=== PATIENT | female | born 1980 | race Caucasian/White ===

== ENCOUNTER 2016-06-08 12:41 | Inpatient (IN) | payer MEDICAID, OTHER ==
[2016-06-08] VITALS (73 sets, daily range): BP systolic 126–165; BP diastolic 72–115
[~2016-06-08] VITALS: Ht 167.6 cm; Wt 73.5 kg
[2016-06-08] MEDS ORDERED: MAGNESIUM SULFATE 50 ML IV ONE (12:47)
[2016-06-08] MEDS ORDERED: CELESTONE SOLUSPAN 6 MG/ML ONE (12:54)
[2016-06-08] MEDS ORDERED: AMPICILLIN SODIUM 2 GM in NS 100ML 100 ML IV ONE (13:30)
[2016-06-08] MEDS ORDERED: DIPRIVAN IV ONE (13:31)
[2016-06-08] MEDS ORDERED: PITOCIN ONE ×2 (13:31→16:57)
[2016-06-08] MEDS ORDERED: ROCEPHIN ONE (13:31)
[2016-06-08] MEDS ORDERED: ZOFRAN ONE (13:31)
[2016-06-08] MEDS ORDERED: SUBLIMAZE ONE (13:32)
[2016-06-08] MEDS ORDERED: KETALAR ONE (13:32)
[2016-06-08] MEDS ORDERED: XYLOCAINE ONE (13:32)
[2016-06-08] MEDS ORDERED: LACTATED RINGERS 2,000 ML ONE (13:33)
[2016-06-08] MEDS ORDERED: ATIVAN IV STA (13:54)
[2016-06-08] MEDS ORDERED: CELESTONE SOLUSPAN 6 MG/ML IM STA (13:54)
[2016-06-08] MEDS ORDERED: VERSED IV STA (13:54)
[2016-06-08] MEDS ORDERED: [UNRECOGNIZED DRUG - OTHER] IV STA (13:54)
[2016-06-08] MEDS ORDERED: LACTATED RINGERS IV SCH (14:00)
--- NOTE | 2016-06-08 14:00 | DIREP ---
PROCEDURE:OBSTETRICAL ULTRASOUND, 2nd AND 3rd TRIMESTER TECHNIQUE:Transabdominal ultrasound of the pelvic contents was performed. COMPARISON:None. INDICATIONS:SEIZURES, NO CARE TECHNIQUE: Transabdominal sonography of the gravid uterus was performed FINDINGS: NUMBER:Beltran. POSITION:Cephalic AMNIOTIC FLUID VOLUME:YUKO - 15 cm PLACENTA:Posterior, with no evidence of placenta previa. CERVIX:3.4 cm length. The cervix appears closed. HEART RATE:146 bpm BIPARIETAL DIAMETER:8.4 cm (34 W 1 D) HEAD CIRCUMFERENCE:30.7 cm (33 W 5 D) ABD CIRCUMFERENCE:28.9 cm (33 W 0 D) FEMUR LENGTH:6.4 cm (32 W 6 D) ESTIMATED WEIGHT:2133.9 gm (4 lb, 11oz) ULTRASOUND GA:33 W 2 D ULTRASOUND ALEC:July 25, 2016 Survey anatomic evaluation was not performed. CONCLUSION:Single live intrauterine gestation as detailed above. [facility] /. Dictated by: Alejandro Sahni M.D. on 06/08/2016 at 01:56 PM
--- NOTE | 2016-06-08 14:21 | PCM.HP ---
OB - Chief Complaint & HPI Date of Admission: Date of Admission: Jun 08, 2016 at 12:41 Diagnosis Carmelina Monsivais is a 35 yo WF patient NO CARE WHATSOEVER, for whom I am trying to put the puzzle pieces together, who was brought in by EMS where she was found seizing in a home [facility]. Carmelina's FOB of her first child, for whom she is still close, called EMS. 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 Her urine is positive for amphetamines today here in the hospital. The EMS crew gave the patient 2.5mg's Versed IVP X 1 while in the truck. We have given the patient 2mg's Ativan IV plus 2mg's Versed IV here at our facility. WE DID OBSERVE AN ECLAMPTIC SEIZURE WHILE SHE WAS HERE AT OUR HOSPITAL, AND SO THAT IS WHY WE GAVE THE ATIVAN. I appreciate the assistance of all of the hospital personnel (RNs, nurse managers, CRNAs) in helping to secure IV access and give drugs. IV Magnesium Sulfate 6gram load was begun, and then a 2gram/hour Magnesium Sulfate maintenance was instituted. Pt received IM Celestone 12mg's and 2grams of Ampicillin IV X 1. The patient's mother said that Carmelina is allergic to PCN, but the patient has exhibited no signs of anaphylaxis. Mira with U/S performed a bedside scan and a gestational age of 33 4/7 weeks was arrived at, no previa, vertex presentation. Dr Rob Chaney, attending airplane dispatcher, has agreed to accept this baby to [facility], and a transfer crew is on its way. I will perform a primary C/S this afternoon. BPs 140s-150s/90s-100s here at bedside. I will try and locate the FOB/FOB of her first baby, and try to gather more information. Chief Complaint/History : 2 Para: 1 EDC: Jul 23, 2016 EGA: 33 4/7 Reason for admission: other (SEIZURE ACTIVITY) Admission Nurse Assessment Rev: Yes OB - History Hx of Present Care: None Other Concerns: PT HAS A H/O HEROIN AND CRYSTAL METH ABUSE, PER HER MOTHER'S REPORT. Past Family/Social History * Past Medical, Surgical, Family and Obstetric Histories reviewed from chart. OB - Admission Exam Physical Exam HEENT: NCAT Lungs: Clear Abdomen: Gravid Extremities: Edema (2+ - 3+) Reflexes: Normal Heart Rate: 140's Decelerations: No Decelerations Fci Variability: Minimal (3-5) Contractions on Admission: None Presentation: vtx OB - Assessment/Plan Assessment Assessment: other (33 4/7 WEEKS' GESTATION, NO CARE, CRYSTAL METH ABUSE, ECLAMPTIC SEIZURE) Plan Plan: Section Other Plan Pt to go to ICU after PACU for more in-depth monitoring. Magnesium Sulfate to resume after delivery of the baby, and will likely continue for 24 hours post- delivery. SURJIT ABURTO MD Jun 08, 2016 14:16
[2016-06-08 15:00] LABS: HEMATOCRIT 39.5 % (36.0-46.0); HEMOGLOBIN 12.3 g/dL (12.0-15.0); MEAN CELL HGB 27.7 pg (26-34); MEAN CELL HGB CONCENTRATION 31.1 g/dL (33-37); RED BLOOD CELL 4.44 10^6/uL (4.00-5.20); WHITE BLOOD CELL 21.1 10^3/uL (4.5-11.0)
[2016-06-08] MEDS ORDERED: LACTATED RINGERS 1,000 ML IV SCH ×2 (15:00→16:30)
[2016-06-08] MEDS ORDERED: MAGNESIUM SULFATE IV ONE (15:00)
[2016-06-08 15:01] LABS: BASOPHIL % 0.3 % (0.0-0.2); EOSINOPHIL % 0.3 % (0.0-5.0); LYMPHOCYTES # 3.7 10^3/uL (1.0-4.8); LYMPHOCYTES % 17.4 % (24.0-44.0); MEAN PLATELET VOLUME 12.7 fL (7.8-11.0); MONOCYTES # 1.4 10^3/uL (0.3-0.8); MONOCYTES % 6.7 % (5.0-12.0); NEUTROPHIL # 15.5 10^3/uL (1.8-7.7); NEUTROPHILS % 73.1 % (41.0-85.0); PLATELET COUNT 212 10^3/uL (150-400)
[2016-06-08 15:02] LABS: BASOPHIL # 0.1 10^3/uL (0.0-0.1); EOSINOPHIL # 0.1 10^3/uL (0.0-0.2)
[2016-06-08] MEDS ORDERED: VERSED ONE ×2 (15:04→16:00)
[2016-06-08] MEDS ORDERED: LR/PITOCIN 500 ML IV SCH (16:00)
[2016-06-08] MEDS ORDERED: PITOCIN 0.02 UNIT in LACTATED RINGERS 1 ML IV SCH (16:18)
[2016-06-08] MEDS ORDERED: NORCO 7.5MG PO PRN (16:30)
[2016-06-08] MEDS ORDERED: MOTRIN PO PRN (16:30)
[2016-06-08] MEDS ORDERED: [UNRECOGNIZED DRUG - OTHER] IV SCH (16:30)
[2016-06-08] MEDS ORDERED: GAVISCON ES TABLET CHEW PO PRN (16:30)
[2016-06-08] MEDS ORDERED: BENADRYL PO PRN (16:30)
[2016-06-08] MEDS ORDERED: DEMEROL IV PRN (16:30)
[2016-06-08] MEDS ORDERED: ZOFRAN ODT SL PRN (16:30)
[2016-06-08] MEDS ORDERED: PHENERGAN IV PRN (16:30)
[2016-06-08] MEDS ORDERED: ZOFRAN IV PRN (16:30)
[2016-06-08] MEDS ORDERED: DILAUDID IV PRN (16:30)
[2016-06-08] MEDS ORDERED: AMBIEN PO PRN (16:30)
[2016-06-08] MEDS ORDERED: MILK OF MAGNESIA PO PRN (16:30)
--- NOTE | 2016-06-08 16:33 | PRM.OPH ---
Immediate Post Op Note Summary of Operation Date: Jun 08, 2016 Time: 16:28 Pre-Operative DX: IUP @ 33 4/7 WKS; NO PNC; ECLAMPTIC SEIZURE; CRYSTAL METH ABUSE Post-OP DX: SAME Anesth.Used: GETA Indications: PRIMARY LOW TRANSVERSE SECTION VIA PFANNENSTIEL Physician's Summary: Liveborn male infant delivered in caul with placental tissue intact as well. Baby boy born at 1540, Apgars of 6 and 8, weight 2147grams (= 4# 11oz). Lightly meconium-stained fluid/membranes. Normal-appearing uterus, normal- appearing tubes bilaterally, ovaries bilaterally. Assistants: Listed Assisting Physicians TIERNEY URIBE RAILROAD OPERATOR; ANNA VALDEZ CST Anesthesiologist/FARM MACHINERY MECHANIC SUZY TRENT FARM MACHINERY MECHANIC; MARILIN MARTINS FARM MACHINERY MECHANIC Specimen(s) Removed: List Specimen: PLACENTA TO PATHOLOGY Estimated Blood Loss: EBL/ESTIMATED BLOOD LOSS: (MIL: 500 Complications: Complications: NONE Assessment & Plan: Update Surgical HX/Problems: (1) Status post primary low transverse section (2) 33 weeks gestation of (3) Eclamptic seizure (4) No care in current (5) Methamphetamine abuse Assessment & Plan: Pt to recover in ICU, and to spend overnight there, while on 2grams/hour IV Magnesium Sulfate. SURJIT ABURTO MD Jun 08, 2016 16:33
[2016-06-08] MEDS ORDERED: APRESOLINE ONE ×2 (16:36→16:38)
[2016-06-08] MEDS ORDERED: ROBINUL ONE (16:56)
[2016-06-08] MEDS ORDERED: ZEMURON IV ONE (16:57)
[2016-06-08] MEDS ORDERED: NEOSTIGMINE ONE (16:57)
--- NOTE | 2016-06-08 17:30 | NUR ---
REC'D FROM PACU 35 YEAR OLD FEMALE AROUSES TO VOICE KNOWS NAME AND PLACE , ON CYTOLOGY LABORATORY MANAGER SHOWS NSR 88 WITHOUT ECTOPY,OXYGEN 2 LITERS/NASAL CANNULA ,NO SEIZURE ACTIVITY AT THIS TIME, SEIZURE PRECAUTIONS IN PLACE,HAS MAGNESIUM INFUSING AT 50 ML/HR=2 GMS/HR ORDERED, HAS PITOCIN INFUSING AT 75 ML/HR FROM PACU ORDERED, ALL ALARMS ON ,ABD INCISION COVERED/DRY/INTACT ,PROVINA IN PLACE,FUNDUS U-2 ABD SOFT,LOCHIA RUBRA MODERATE AMT NOTED,ABD BINDER IN PLACE, BREAST ARE WRAPPED,CONT TO MONITOR ,WILL MAINTAIN SAFETY AND COMFORT AT ALL TIMES
--- NOTE | 2016-06-08 17:30 | NUR ---
rec'd report from namita lopez health and social care teacher , and heena rn, assume care, sales and marketing intern done,
--- NOTE | 2016-06-08 17:30 | NUR ---
CLEAR LIQUIDS SERVED,ABD BINDER PLACED, FUNDUS CHECK SEE FORM
--- NOTE | 2016-06-08 17:45 | NUR ---
placed on comfort flow 2lpm @ 40% Addendum: 06/08/16 at 1746 by Amanda Merino RRT RT Amended: Links added.
[2016-06-08 18:10] LABS: UR AMPHETAMINE QUAL POSITIVE (NEGATIVE); UR BARBITURATE QUAL NEGATIVE (NEGATIVE); UR BENZODIAZEPINE QUAL NEGATIVE (NEGATIVE); UR COCAINE QUAL NEGATIVE (NEGATIVE); UR OPIATE QUALITIVE NEGATIVE (NEGATIVE); UR TETRAHYDROCANNABINOL (THC) NEGATIVE (NEGATIVE)
[2016-06-08 18:11] LABS: APPEARANCE,URINE CLOUDY (CLEAR); BILIRUBIN,URINE NEGATIVE (NEGATIVE); PH,URINE 5 (5.0-6.0); UA COLOR YELLOW (YELLOW); UROBILINOGEN,URINE NEGATIVE (NEGATIVE); WBC,URINE 0-2 WBC/HPF (0-2)
[2016-06-08 18:12] LABS: AMORPHOUS SEDIMENT,UR LARGE (NONE SEEN)
--- NOTE | 2016-06-08 18:35 | NUR ---
reflexes normal with fundus inspection , report to hs nurse
--- NOTE | 2016-06-08 19:15 | NUR ---
ASSESSMENT Assessment performed. Fundus firm -1. Small amt vaginal bleeding noted. Herron draining to gravity. Provina wound vac on and intact. DTR normal. Negative clonus. Pt oriented to person and place. Unable to complete full sentence without falling asleep. Danelle care given. Pt requested jello. Jello given to patient.
[2016-06-08 20:08] LABS: BASOPHIL 2 % (0-2); DIFFERENTIAL COMMENT NORMAL; LYMPHOCYTE 14 % (25-36); MONOCYTE 3 % (3-9); SEGMENTED NEUTROPHILS 81 % (31-76); TOTAL CELLS COUNTED 100 #CELLS
--- NOTE | 2016-06-08 20:15 | NUR ---
DTR dtr normal. negative homans sign. b/p 135/87. Denies any headache at this time. Resp. 15 and unlabored. Fundus firm
[2016-06-08] MEDS ORDERED: DEMEROL ONE (20:50)
[2016-06-08] MEDS ORDERED: PHENERGAN ONE (21:06)
--- NOTE | 2016-06-08 21:15 | NUR ---
DTR dtr normal. negative homans sign. Scant amount of vaginal bleeding. Danelle care given. B/p 153/108 resp. 12.
[2016-06-08] MEDS ORDERED: TRANDATE PO SCH (21:30)
[2016-06-08] MEDS ORDERED: TRANDATE PO STA (21:38)
[2016-06-09] VITALS (85 sets, daily range): BP systolic 123–169; BP diastolic 72–111
--- NOTE | 2016-06-09 00:15 | NUR ---
RESTING resting in bed with call light in reach. No acute distress noted.
--- NOTE | 2016-06-09 01:58 | NUR ---
RESTING repositioned in bed in left lateral. Call light in reach. Opens eyes to voice but quickly goes back to sleep easily.
--- NOTE | 2016-06-09 03:00 | NUR ---
ALAN CARE ALAN CARE GIVEN. SMALL AMOUNT OF VAGINAL BLEEDING PRESENT. FUNDUS FIRM -2. PITOCIN COMPLETED. LR @125 ML/HR INFUSING. PT AWAKENS TO NAME BUT QUICKLY CLOSES EYES. GOOD URINE OUTPUT NOTED. 200 ML IN LAST HOUR. CALL LIGHT IN REACH. WILL CONT TO MONITOR FOR CHANGES.
--- NOTE | 2016-06-09 05:00 | NUR ---
LAB LAB HERE TO DRAW BLOOD
--- NOTE | 2016-06-09 05:17 | PRM.ACF1 ---
Admission Criteria Forms AMBULATORY SURGERY EXCEPTION CRITERIA Ambulatory Surgery Exception Criteria ( Place 'X' for any and all applicable criteria): Surgery or procedure performed on ambulatory basis may require inpatient stay for[A] ANY ONE of the following(1)(2)(3)(4)(5)(6)(7)(8)(9): [X] I. A preoperative situation, condition, or finding that warrants inpatient stay as indicated by ANY ONE of the following: [] a) Inpatient care needed because of severity of a disease or condition rather than the surgery (eg, severe cardiac or respiratory disease, severe infection) (15) (16 ) (17) (18) [] b) Emergent procedure (eg, angioplasty for acute ischemia)(19) [] c) Complex surgical approach or situation as indicated by ANY ONE of the following(3): [] i) Open approach needed instead of usual endoscopic, transcatheter, or other less invasive procedure [] ii) Difficult approach because of previous operation [] iii) Airway monitoring required after open neck procedures(20)(21 ) [] iv) Large mass requiring unusually extensive dissection [] v) Additional complicating feature requiring inpatient care (eg , drain management)(22(23): [X] d) Major surgery in a pt with high anesthetic risk as indicated by ANY ONE of the following (2)(3)(5)(7)(8): [X] i) ASA risk class III or higher (severe systemic disease impairing function) [D] [] ii) Advanced age (eg, older than 85 years)(14)(24) [] iii) Symptomatic heart failure(25) [] iv) Symptomatic asthma or COPD(8)(21) [] v) Morbid obesity with hemodynamic or respiratory problems(20)( 21)(26)(27) [] vi) Obstructive sleep apnea(20)(21) [] vii) Former premature infants who are younger than 60 weeks [] viii) High risk for severe postoperative abnormalities (eg, severe postoperative hypocalcemia after parathyroidectomy for severe hyperparathyroidism)(27)( 28) [] ix) Unstable angina(25) [] e) Drug-related risk requiring inpatient stay as indicated by ANY ONE of the following(5)(10)(14)(32)(33) [] i) Procedure requires discontinuing drugs or other therapy (eg , antiarrhythmic medication, antiseizure medication), which necessitates inpatient observation or treatment.(18)(31) [] ii) Major surgery and high risk drug use as indicated by ANY ONE of the following: [] 1) Active abuse of cocaine or similar drug [] 2) Monoamine oxidase inhibitor use [] 3) Other drug identified as posing risk [] f) Inadequate outpatient care situation as indicated by ANY ONE of the following(5)(10)(14)(32)(33) [] i) Patient lives remote from medical facility and procedure has urgent complication potential, and temporary nearby residence cannot be arranged [] ii) Patient will have postprocedure incapacitation and inadequate assistance at home, or alternative level of care cannot be arranged. [] iii) Patient will have long general anesthesia or procedure side effect resolution time, and competent person to stay with patient on first postoperative night at home or alternative level of care cannot be arranged. [] iv) Other inadequate outpatient situation that cannot be handled by other means [] II. A perioperative event, condition, or finding that warrants inpatient stay as indicated by ANY ONE of the following (1)(2)(3): [] a) Inadequate physiologic recovery: cardiovascular, respiratory, or hemodynamic status not normal or near preoperative baseline(18) [] b) Hemodynamic instability [] c) Patient not alert with near normal or baseline mental status [] d) Temperature not normal or as expected and not appropriate for outpatient treatment of condition [] e) Ambulatory or appropriate activity level status not yet achieved post procedure [E](34)(35)(36) [] f) Operative site not appropriate (eg, unexpected or excessive drainage or bleeding) [] g) Postoperative effects not resolved or adequately managed (eg, significant pain or vomiting not appropriate for outpatient or next level of care)(10)(12) [] h) Complicating features requiring inpatient care as indicated by ANY ONE of the following(37): [] i) Severe complications of procedure (eg, bowel injury, airway compromise, vascular injury,severe hemorrhage) [] ii) Extensive (eg, dissection far beyond usual scope of procedure ) or prolonged (eg, 120 minutes beyond usual) surgery needed requiring inpatient postoperative care [] iii) Conversion to an open or complex procedure that requires inpatient care (eg, open vs laparoscopic cholecystectomy, abdominal vs vaginal hysterectomy)(38) [] iv) Comorbid condition or test result identified during or post procedure that requires inpatient care (7) [] v) Malignant hyperthermia(30) [] vi) Other complicating feature requiring inpatient care(22)(23) Inpatient stay may be needed until ALL of the following are present (1)(2)(3)(4) (5)(6)(10)(14)(33)(40): []a) Physiologic recovery: cardiovascular, respiratory, and hemodynamic status normal or near preoperative baseline []b) Hemodynamic stability []c) Patient alert, with near normal or baseline mental status []d) Temperature appropriate: patient afebrile or temperature appropriate for outpt treatment of condition []e) Activity level appropriate: ambulatory or appropriate activity level post procedure []f) Operative site appropriate as indicated by ALL of the following: []i) Site dry or with expected drainage []ii) Any blood noted is as expected for procedure. []g) Postoperative effects resolved or managed as indicated by ALL of the following: []i) Pain management appropriate for outpatient (or next level of) care(10) []ii) Minimal nausea and vomiting: if present, successfully treated with oral medication(12) []iii) Headache, dizziness, or drowsiness (if present) are mild. []h) Voiding status acceptable as indicated by ANY ONE of the following: []i) Voiding spontaneously []ii) No voiding but instructions given for follow-up in 6 to 8 hours []iii) Urinary catheter in place, and instructions given for follow-up []i) Complicating features requiring inpatient care manageable at a lower level of care(37) []j) Comorbid conditions manageable at a lower level of care(37) The original payworks content created by [employer] has been revised. The portions of the content which have been revised are identified through the use of italic text or in bold, and [employer]works has neither reviewed nor approved the modified material. All other unmodified content is copyright payworks. Please see references footnoted in the original payworks edition 2016 Is [facility]/Mariah's added/comple: YES OLEG EWING [facility] Jun 09, 2016 05:17
--- NOTE | 2016-06-09 05:45 | NUR ---
ALAN CARE ALAN CARE DONE. APPIAH EMPTIED. RESTING WELL IN BED. CALL LIGHT IN REACH.
[2016-06-09 06:08] LABS: HEMATOCRIT 32.2 % (36.0-46.0); HEMOGLOBIN 10.9 g/dL (12.0-15.0); LYMPHOCYTES # 1.8 10^3/uL (1.0-4.8); LYMPHOCYTES % 8.2 % (24.0-44.0); MEAN CELL HGB 28.8 pg (26-34); MEAN CELL HGB CONCENTRATION 33.9 g/dL (33-37); MEAN CORP VOLUME 85.2 fL (78-100); MEAN PLATELET VOLUME 13.2 fL (7.8-11.0); MONOCYTES # 0.9 10^3/uL (0.3-0.8); NEUTROPHIL # 18.6 10^3/uL (1.8-7.7); NEUTROPHILS % 87.4 % (41.0-85.0); RED BLOOD CELL 3.78 10^6/uL (4.00-5.20); RED CELL DISTRIBUTION WIDTH 12.9 % (11.5-14.5); WHITE BLOOD CELL 21.3 10^3/uL (4.5-11.0)
[2016-06-09 06:30] LABS: INR 0.9; PROTHROMBIN PROTIME 9.4 SEC (9.8-11.9)
[2016-06-09 06:34] LABS: ALANINE AMINOTRANSFERASE 32 U/L (12-78); ALBUMIN 1.9 g/dL (3.4-5.0); ALKALINE PHOSPHATASE 178 U/L (50-136); ANION GAP 11.3; ASPARTATE AMINO TRANSFERASE 62 U/L (0-35); CREATININE SERUM 1.06 mg/dL (0.59-1.40); GLUCOSE 117 mg/dL (70-110); URIC ACID 5.8 mg/dL (2.6-6.0)
--- NOTE | 2016-06-09 06:45 | NUR ---
rec'd report from nurse,
--- NOTE | 2016-06-09 06:50 | NUR ---
REPORT report given to oncoming shift.
--- NOTE | 2016-06-09 07:00 | NUR ---
RECEIVED PATIENT RESTING WITH EYES CLOSED ON SEMI FOWLERS POSITION WITH FEET ELEVATED AT 15 DEGREES DIME SIZE BRUISE ON LEFT HAND MILD SWELLING NOTED. APPLIED WARM COMPRESS TO SITE WITH GOOD DEEP TENDON REFLEXES BREAST AND ABDOMINAL BINDER IN PLACE PROVINA WOUND VAC IN PLACE
--- NOTE | 2016-06-09 08:30 | NUR ---
RT HERE SOFIA ,I.S 1000ML ,WILL CONT TO ENCOURAGE USE, EXPLANATION GIVEN ,FULLY UNDERSTANDS PURPOSE
[2016-06-09] MEDS ORDERED: TRANDATE PO SCH (09:00)
[2016-06-09] MEDS: PRENATAL VITAMIN TABLET PO SCH (09:00)
--- NOTE | 2016-06-09 09:00 | NUR ---
refuses vitamin, trandate 100mg po not given sbp 130/88 hr 88 ,will cont to monitor maintain safety and comfort at all times
--- NOTE | 2016-06-09 09:25 | NUR ---
CALLED DR ABURTO CONCERNING LABS ORDERED FROM [facility],DR ABURTO STATES HE WILL DO THE EXAM AND COLLECT SAMPLES TO SEND TO LAB " Addendum: 06/09/16 at 0932 by ALLEN POPE RN RN REF:TEST REQUEST CHLAMYDIA GBS,ALYCEES
--- NOTE | 2016-06-09 09:32 | NUR ---
CALLED [facility] REQUESTED [phone],NO ANSWER ,LEFT NUMBER TO RETURN CALL
--- NOTE | 2016-06-09 10:29 | NUR ---
[facility] [place] [employer] HERE SPEAKING WITH PT, CPS CLASSROOM ASSISTANT III
[2016-06-09] MEDS ORDERED: LACTATED RINGERS 1,000 ML IV ONE (11:25)
[2016-06-09] MEDS ORDERED: MAGNESIUM SULFATE 1,000 ML IV SCH (11:30)
[2016-06-09] MEDS ORDERED: LACTATED RINGERS IV SCH (12:30)
[2016-06-09] MEDS ORDERED: LACTATED RINGERS 1,000 ML IV SCH (12:30)
--- NOTE | 2016-06-09 12:54 | PRM.PN ---
Subjective/Objective S/P: C/S (S/P Primary C/S for eclamptic seizure not in labor, no PNC, 33 4/7 weeks by bedside U/S) General: Other (She is having some abdominal pain when she deep breathes) Chest: Clear Heart: RRR Abdomen: Uterus Firm/Non-Tender incision: Other (Prevena wound vac still in place, and working well) Urine Output: Adequate Extremities: Other (2+ pitting edema continues; reflexes 2+/brisk) Vital Signs First Vital Signs Date Time Temp Pulse Resp B/P Pulse Ox O2 Delivery O2 Flow Rate FiO2 06/08/16 16:19 10 06/08/16 16:19 97.4 92 16 157/106 100 Venti Mask 06/09/16 09:58 21 Last Vital Signs Date Time Temp Pulse Resp B/P Pulse Ox O2 Delivery O2 Flow Rate FiO2 06/09/16 09:58 86 20 95 Room Air 21 06/09/16 09:15 137/85 06/09/16 08:03 2.00 06/09/16 06:30 98.1 Pulse in the low 90s, and last BP 151/87. Assessment/Plan Assessment/Plan Will D/C Magnesium Sulfate seizure prophylaxis tomorrow am, and transfer back to . Will D/C Herron in am too. Will order am labs. Her creatinine is over 1.0. Problems: (1) Status post primary low transverse section Status: Acute ICD Code: Z98.891 SNOMED: 61286532 (2) 33 weeks gestation of Status: Acute ICD Code: Z3A.33 SNOMED: 49829495 (3) Eclamptic seizure Status: Acute ICD Code: O15.9 SNOMED: 65927156 (4) No care in current Status: Acute ICD Code: O09.30 SNOMED: 4660122139522 (5) Methamphetamine abuse Status: Acute ICD Code: F15.10 SNOMED: 126375417 SURJIT ABURTO MD Jun 09, 2016 12:54
[2016-06-09] MEDS ORDERED: LEVAQUIN IV ONE (15:00)
[2016-06-09] MEDS ORDERED: ROCEPHIN 1,000 MG in NS 100ML 100 ML IV ONE (15:00)
--- NOTE | 2016-06-09 15:20 | NUR ---
DISCHARGE PLANNING: SS VISITED WITH PT CONCERNING DISCHARGE PLANNING NEEDS. PT IS INDEPENDENT AND LIVES HOME WITH HER IN [place]. PT STATED SHE WAS HERE VISITING WHEN SHE WAS RUSHED TO THE HOSPITAL. PT STATED SHE IS GETTING DRUG REHABILITATION ASSISTANCE IN [place], AND WILL FOLLOW UP WITH THEM UPON DISCHARGE. PT DOES NOT THINK SHE NEEDS INPATIENT REHABILITATIONS FOR DRUGS AT THIS TIME. PT'S GOAL IS TO RETURN HOME WITH HER . PT DENIES NEEDING ADDITIONAL RESOURCES AT THIS TIME. NO FURTHER NEEDS NOTED OR IDENTIFIED AT THIS TIME. CPS REPORT WAS MADE, AND CPS IS ACTIVELY INVOLVED IN PT'S CASE AND HAS VISITED WITH HER AND HER FAMILY NUMEROUS TIMES THROUGHOUT THE DAY. SS TO CONTINUE TO FOLLOW AND MONITOR DISCHARGE PLANNING/SS NEEDS.
--- NOTE | 2016-06-09 17:15 | NUR ---
UP IN CHAIR WITH ONE ASSIT, WEAK YET STEADY GAIT, N/C VOICED AT THIS TIME , SAFETY AND COMFORT MAINTAINED AT ALL TIMES
--- NOTE | 2016-06-09 18:55 | NUR ---
report given to PADMAJA ASIF
--- NOTE | 2016-06-09 19:00 | NUR ---
SBAR REPORT RECEIVED FROM AM SHIFT. INTRODUCED SELF, ASSUMED CARE. PROVIDED PATIENT WITH JELLO. PATIENT WISHES TO GET BACK IN BED AFTER EATING.
--- NOTE | 2016-06-09 19:05 | NUR ---
ASSISTED PATIENT BACK TO BED. DENIES FURTHER NEEDS AT THIS TIME.
--- NOTE | 2016-06-09 19:08 | NUR ---
NICU NURSE FROM [facility] CALLED TO SPEAK WITH PATIENT TO UPDATE HER ON THE STATUS OF HER BABY.
--- NOTE | 2016-06-09 19:30 | NUR ---
PATIENTS MOTHER CALLED TO TALK TO PATIENT. PROVIDED WITH CORDLESS TELEPHONE. DENIES NEEDS.
--- NOTE | 2016-06-09 21:00 | NUR ---
PROVIDED PATIENT WITH JELLO AND 8 OZ OF JUICE.
[2016-06-10] VITALS (32 sets, daily range): BP systolic 138–191; BP diastolic 73–108
--- NOTE | 2016-06-10 | NUR ---
PROVIDED PATIENT WITH JUICE AND IQRA
--- NOTE | 2016-06-10 03:05 | NUR ---
PROVIDED PATIENT WITH JELLO AND JUICE. DENIES PAIN OR FURTHER NEEDS.
--- NOTE | 2016-06-10 05:11 | NUR ---
LAB AT BEDSIDE FOR AM DRAW. DENIES FURTHER NEEDS AT THIS TIME.
[2016-06-10 05:35] LABS: BASOPHIL % 0.1 % (0.0-0.2); HEMATOCRIT 25.6 % (36.0-46.0); HEMOGLOBIN 8.3 g/dL (12.0-15.0); LYMPHOCYTES # 2.5 10^3/uL (1.0-4.8); LYMPHOCYTES % 12.4 % (24.0-44.0); MEAN CELL HGB CONCENTRATION 32.4 g/dL (33-37); MEAN CORP VOLUME 86.5 fL (78-100); MONOCYTES # 1.5 10^3/uL (0.3-0.8); MONOCYTES % 7.6 % (5.0-12.0); NEUTROPHIL # 16.1 10^3/uL (1.8-7.7); NEUTROPHILS % 79.9 % (41.0-85.0); PLATELET COUNT 196 10^3/uL (150-400); RED BLOOD CELL 2.96 10^6/uL (4.00-5.20); RED CELL DISTRIBUTION WIDTH 13.4 % (11.5-14.5); WHITE BLOOD CELL 20.1 10^3/uL (4.5-11.0)
[2016-06-10 05:57] LABS: ALANINE AMINOTRANSFERASE 27 U/L (12-78); ALBUMIN 1.7 g/dL (3.4-5.0); ALKALINE PHOSPHATASE 131 U/L (50-136); ANION GAP 10.4; ASPARTATE AMINO TRANSFERASE 34 U/L (0-35); CALCIUM 6.1 mg/dL (8.4-10.5); CREATININE SERUM 0.93 mg/dL (0.59-1.40); GLUCOSE 91 mg/dL (70-110); URIC ACID 4.9 mg/dL (2.6-6.0)
--- NOTE | 2016-06-10 06:45 | NUR ---
Report received from LAYA Frias and [facility].
--- NOTE | 2016-06-10 06:45 | NUR ---
SBAR REPORT GIVEN TO ONCOMING SHIFT. RELINQUISHED CARE.
--- NOTE | 2016-06-10 07:00 | NUR ---
Called OB to let them know that I am bringing the patient to room 324.
--- NOTE | 2016-06-10 07:05 | NUR ---
Notified patient's mother and that patient will go to OB room 324.
--- NOTE | 2016-06-10 07:10 | NUR ---
Germaine GAMBOA and IV on SL.
--- NOTE | 2016-06-10 07:15 | NUR ---
Assisted patient putting on new disposable underwear and feminine napkin.
--- NOTE | 2016-06-10 07:20 | NUR ---
Pt. transported out of the unit by wheelchair on room air with IV G 18 at L AC and IV G 18 at R wrist on SL. Report given to LAYA Galindo and inform her that garcia was removed at 0710 and patient is due to void. Relinquished care.
[2016-06-10 08:17] LABS: ANISOCYTOSIS 1+ (NEGATIVE); LYMPHOCYTE 9 % (25-36); MONOCYTE 4 % (3-9); POIKILOCYTOSIS 1+ (NEGATIVE); SEGMENTED NEUTROPHILS 87 % (31-76); TOTAL CELLS COUNTED 100 #CELLS
[2016-06-10] MEDS: PRENATAL VITAMIN TABLET PO SCH (09:00)
[2016-06-10] MEDS ORDERED: NORCO 7.5MG PO ONE ×3 (13:44→22:31)
[2016-06-10] MEDS: NORCO 7.5MG PO PRN ×2 (13:48→17:50)
[2016-06-10] MEDS ORDERED: AMBIEN ONE (22:26)
[2016-06-10] MEDS ORDERED: MOTRIN ONE (22:31)
[2016-06-11 08:17] LABS: BASOPHIL % 0.1 % (0.0-0.2); EOSINOPHIL # 0.1 10^3/uL (0.0-0.2); EOSINOPHIL % 0.5 % (0.0-5.0); HEMATOCRIT 25.5 % (36.0-46.0); HEMOGLOBIN 7.9 g/dL (12.0-15.0); LYMPHOCYTES # 2.2 10^3/uL (1.0-4.8); LYMPHOCYTES % 15.1 % (24.0-44.0); MEAN CELL HGB 28.1 pg (26-34); MEAN CORP VOLUME 90.7 fL (78-100); MEAN PLATELET VOLUME 11.1 fL (7.8-11.0); MONOCYTES % 6.9 % (5.0-12.0); NEUTROPHIL # 11.3 10^3/uL (1.8-7.7); NEUTROPHILS % 76.7 % (41.0-85.0); RED BLOOD CELL 2.81 10^6/uL (4.00-5.20); RED CELL DISTRIBUTION WIDTH 13.8 % (11.5-14.5); WHITE BLOOD CELL 14.8 10^3/uL (4.5-11.0)
[2016-06-11] MEDS ORDERED: PRENATAL VITAMIN TABLET PO SCH (09:00)
--- NOTE | 2016-06-11 10:11 | PRM.PN ---
Subjective/Objective S/P: C/S (POD #3 s/p Primary C/S) General: No Complaints Chest: Clear Heart: RRR Abdomen: Uterus Firm/Non-Tender incision: Other (Prevena wound vac still in place and working well) Urine Output: Adequate Extremities: Other (2+ pitting edema bilaterally) Vital Signs First Vital Signs Date Time Temp Pulse Resp B/P Pulse Ox O2 Delivery O2 Flow Rate FiO2 06/08/16 16:19 10 06/08/16 16:19 97.4 92 16 157/106 100 Venti Mask 06/09/16 09:58 21 Last Vital Signs Date Time Temp Pulse Resp B/P Pulse Ox O2 Delivery O2 Flow Rate FiO2 06/10/16 09:09 88 18 93 Room Air 21 06/10/16 07:30 147/81 06/10/16 07:15 98.5 06/10/16 07:10 2.00 BP 130s/80s currently (135/85). Laboratory Tests Test 06/10/16 05:26 06/11/16 08:10 White Blood Count 20.110^3/uL 14.810^3/uL Red Blood Count 2.9610^6/uL 2.8110^6/uL Hemoglobin 8.3g/dL 7.9g/dL Hematocrit 25.6% 25.5% Mean Corpuscular Volume 86.5fL 90.7fL Mean Corpuscular Hemoglobin 28.0pg 28.1pg Mean Corpuscular Hemoglobin Concent 32.4g/dL 31.0g/dL Red Cell Distribution Width 13.4% 13.8% Platelet Count 44437^3/uL 70597^3/uL Mean Platelet Volume 12.0fL 11.1fL Neutrophils (%) (Auto) 79.9% 76.7% Lymphocytes (%) (Auto) 12.4% 15.1% Monocytes (%) (Auto) 7.6% 6.9% Neutrophils # (Auto) 16.110^3/uL 11.310^3/uL Lymphocytes # (Auto) 2.510^3/uL 2.210^3/uL Monocytes # (Auto) 1.510^3/uL 1.010^3/uL Differential Total Cells Counted 100#CELLS Eosinophils % 0.0% 0.5% Basophils % 0.1% 0.1% Segmented Neutrophils 87% Lymphocytes 9% Monocytes 4% Basophils # 0.010^3/uL 0.010^3/uL Platelet Estimate Adequate Platelet Morphology Normal Poikilocytosis 1+ Anisocytosis 1+ Eosinophil Count 0.010^3/uL 0.110^3/uL Sodium Level 137mmol/L Potassium Level 4.4mmol/L Chloride Level 105.0mmol/L Carbon Dioxide Level 26.0mmol/L Anion Gap 10.4 Blood Urea Nitrogen 7mg/dL Creatinine 0.93mg/dL Estimat Glomerular Filtration Rate >60 BUN/Creatinine Ratio 7.0 Glucose Level 91mg/dL Calculated Osmolality 281.5 Uric Acid 4.9mg/dL Calcium Level 6.1mg/dL Total Bilirubin 0.1mg/dL Aspartate Amino Transf (AST/SGOT) 34U/L Alanine Aminotransferase (ALT/SGPT) 27U/L Alkaline Phosphatase 131U/L Lactate Dehydrogenase 423U/L Total Protein 4.9g/dL Albumin 1.7g/dL Globulin 3.2 Absolute Immature Granulocyte (auto 0.1110^3 u/L Percent Immature Gran (Cell Imm) 0.70% Assessment/Plan Assessment/Plan POSSIBLE DISCHARGE TO HOME TODAY. I will review all of her labs today. Problems: (1) Status post primary low transverse section Status: Acute ICD Code: Z98.891 SNOMED: 56396039 (2) 33 weeks gestation of Status: Acute ICD Code: Z3A.33 SNOMED: 89670977 (3) Eclamptic seizure Status: Acute ICD Code: O15.9 SNOMED: 23603097 (4) No care in current Status: Acute ICD Code: O09.30 SNOMED: 6116047676330 (5) Methamphetamine abuse Status: Acute ICD Code: F15.10 SNOMED: 109433756 SURJIT ABURTO MD Jun 11, 2016 10:10
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
[2016-06-11 10:29] LABS: ALANINE AMINOTRANSFERASE 30 U/L (12-78); ALBUMIN 1.7 g/dL (3.4-5.0); ALKALINE PHOSPHATASE 124 U/L (50-136); ANION GAP 10.9; ASPARTATE AMINO TRANSFERASE 41 U/L (0-35); CALCIUM 6.6 mg/dL (8.4-10.5); CARBON DIOXIDE 26.1 mmol/L (20.0-32); GLUCOSE 91 mg/dL (70-110); URIC ACID 3.6 mg/dL (2.6-6.0)
[2016-06-11] MEDS ORDERED: BENADRYL PO PRN (10:30)
[2016-06-11] MEDS ORDERED: DEMEROL IV PRN (10:30)
[2016-06-11] MEDS ORDERED: PHENERGAN IV PRN (10:30)
[2016-06-11] MEDS ORDERED: DILAUDID IV PRN (10:30)
[2016-06-11] MEDS ORDERED: ZOFRAN IV PRN (10:30)
[2016-06-11] MEDS ORDERED: MILK OF MAGNESIA PO PRN (10:30)
[2016-06-11] MEDS ORDERED: NORCO 7.5MG PO ONE (10:44)
[2016-06-11 10:55] LABS: INR 0.9; PARTIAL THROMBOPLASTIN TIME 19.1 SEC (24.67-30.72); PROTHROMBIN PROTIME 9.3 SEC (9.8-11.9)
[2016-06-11] MEDS ORDERED: HYDR-925 PO (11:59)
--- NOTE | 2016-06-11 12:07 | PRM.DC ---
OB Discharge Summary Discharge Summary Discharge Diagnosis: S/P Vitals First Vital Signs Date Time Temp Pulse Resp B/P Pulse Ox O2 Delivery O2 Flow Rate FiO2 06/08/16 16:19 10 06/08/16 16:19 97.4 92 16 157/106 100 Venti Mask 06/09/16 09:58 21 Last Vital Signs Date Time Temp Pulse Resp B/P Pulse Ox O2 Delivery O2 Flow Rate FiO2 06/10/16 09:09 88 18 93 Room Air 21 06/10/16 07:30 147/81 06/10/16 07:15 98.5 06/10/16 07:10 2.00 Complications: PIH (Pt had an eclamptic seizure--and was given IV Magnesium Sulfate seizure prophylaxis. Pt was not put on an antihypertensive during her course.) Medications: Other (Rx for [place] 7.5/325 #60 no refills--written on triplicate prescription pad) Discharge Disposition: Stable Discharge Instructions: Pelvic Rest x 6 Weeks, Clinic F/U 1-2 Weeks, Regular Diet, Regular Activity, Meds as Prescribed, Call MD for Problems Additional Comments Pt told by me at nurse's station, that if she has any signs/symptoms of pre- eclampsia (HAs, scotomata), then she is go to the ER in [facility] [place]. She is going to go home with FOB of her first baby, who is named Shivam. SURJIT ABURTO MD Jun 11, 2016 12:07
[2016-06-11] MEDS ORDERED: NORCO 7.5MG PO PRN ×2 (12:30)
[2016-06-11 14:23] LABS: AMPHETAMINES Positive (.)
[2016-06-11] MEDS ORDERED: MOTRIN PO PRN (16:30)
[2016-06-11] MEDS ORDERED: GAVISCON ES TABLET CHEW PO PRN (16:30)
[2016-06-11] MEDS ORDERED: ZOFRAN ODT SL PRN (16:30)
[2016-06-11] MEDS ORDERED: AMBIEN PO PRN (21:00)
== END 2016-06-11 12:11 | disposition home or self-care (01) | DRG 540 ==
LOC: ATP 12:41 → OBSVTOIN 12:41 → EDBD 12:41 → EEVIPCON 12:41 → ICU 17:30 → LND 06-10 07:20
PROVIDERS: ADMIT Hospitalist; ATTEND Hospitalist
PROC: 10D00Z1 Extraction of Products of Conception, Low, Open Approach (ICD-10-PCS; principal; 2016-06-08 15:20)
DX: O15.1 Eclampsia complicating labor (principal); O99.324 Drug use complicating childbirth; Z3A.33 33 weeks gestation of pregnancy; Z37.0 Single live birth; F15.10 Other stimulant abuse, uncomplicated
CPT/HCPCS: 36415; 76815; 80053; 80307; 80324; 81000; 83615; 84550; 85007; 85025; 85610; 85730; 86592; 86706; 86762; 86803; 86885; 86900; 86901; 86921; 88305; J0290; J0360; J0696; J1956; J2060; J2175; J2250; J2405; J2550; J2590; J2710; J3010; J3475; J3490; J7120; J0702